=== PATIENT | male | born 1960 | race Two or more races ===

== ENCOUNTER 2024-03-07 21:04 | Emergency (ER) | payer OTHER ==
[~2024-03-07] VITALS: Ht 180.3 cm; Wt 142.6 kg
[2024-03-07] MEDS ORDERED: HYDROcodone-ACET 10/325MG TAB PO ONE (22:15)
[2024-03-07] MEDS: HYDROcodone-ACET 5/325MG TAB PO ONE (22:21)
[2024-03-07 22:29] LABS: Basophils # (auto) 0.1 10 ^3/uL (0-0.2); Eosinophils # (auto) 0.2 10 ^3/uL (0-0.8); Eosinophils % (auto) 1.6 % (0.0-7.0); Lymphocytes # (auto) 2.9 10 ^3/uL (0.4-5.4); Monocytes # (auto) 0.8 10 ^3/uL (0-1.3)
[2024-03-07 22:31] LABS: Basophils % (auto) 1.1 % (0.0-2.0); Hemoglobin 11.7 g/dL (13.5-17.5); Lymphocytes % (auto) 21.9 % (10.0-50.0); Mean Corpuscular Hemoglobin 21.8 pg (28.0-32.0); Mean Corpuscular Hgb Conc. 31.6 g/dL (32.0-36.0); Mean Corpuscular Volume 69.2 fL (80.0-100.0); Monocytes % (auto) 6.4 % (0.0-12.0); Neutrophils # (auto) 9.1 10 ^3/uL (1.6-8.6); Red Blood Cells 5.35 10^6/uL (4.5-5.90); White Blood Cell 13.2 10^3/uL (4.4-10.8)
[2024-03-07 22:41] LABS: Alanine Aminotransferase 21 U/L (7-40); Albumin 4.5 g/dL (3.2-4.8); Alkaline Phosphatase 97 U/L (46-116); Anion Gap 6 (5-15); Aspartate Aminotransferase 19 U/L (13-40); BUN/Creatinine Ratio 11.9 (10.0-20.0); Bilirubin, Total 0.3 mg/dL (0.2-1.0); Blood Urea Nitrogen 14 mg/dL (9-23); Calcium 9.6 mg/dL (8.5-10.1); Carbon Dioxide 27 mmol/L (20-30); Chloride 102 mmol/L (98-107); Glucose 138 mg/dL (74-106); Potassium 3.9 mmol/L (3.5-5.1); Sodium 135 mmol/L (136-145); Total Protein 7.1 g/dL (5.7-8.2)
[2024-03-08 00:18] VITALS: BP 160/61; PULSE 79; RESP 15; TEMP 98.4
[2024-03-08 00:19] VITALS: O2SAT 96
[2024-03-08] MEDS ORDERED: FURO1TAB33 PO (00:27)
[2024-03-08] MEDS ORDERED: ACE3T PO (00:27)
== END 2024-03-08 00:43 | disposition home or self-care (01) ==
LOC: ER 21:04
DX: E11.610 Type 2 diabetes mellitus with diabetic neuropathic arthropathy (principal); R60.0 Localized edema; M79.671 Pain in right foot; E66.01 Morbid (severe) obesity due to excess calories; Z68.41 Body mass index [BMI] 40.0-44.9, adult
CPT/HCPCS: 36415; 80053; 83880; 85025; 93971